=== PATIENT | female | born 1965 | race Hispanic/Latino ===

== ENCOUNTER 2017-05-21 11:37 | Observation (INO) | payer OTHER, SELFPAY ==
[2017-05-21 13:01] LABS: Bilirubin Negative (Negative); Blood, Urine Trace (Negative); Clarity CLEAR (Clear); Glucose, Urine (Dipstick) Negative (Negative); Leukocyte Negative (Negative); Nitrite Negative (Negative); Protein, Urine (Dipstick) Negative (Neg-Trace); Specific Gravity, Urine 1.018 (1.002-1.036); pH, Urine 7.5 (5.0-9.0)
[2017-05-21 13:04] LABS: Bacteria/HPF Rare-Few HPF (None Seen); Hyaline Casts/LPF 0-3 HYALINE CAST LPF (0-3 Hyaline); WBC/HPF 0-3 HPF (0-3)
[2017-05-21] MEDS ORDERED: Ondansetron HCl/PF 4 MG/2 ML Vial ONE (13:08)
[2017-05-21 13:34] LABS: #Basophils 0.1 thou/uL (0.0-0.2); #Eosinphils 0.1 thou/uL (0.0-0.7); #Lymphocytes 2.6 thou/uL (1.20-3.40); #Monocytes 0.6 thou/uL (0.11-0.59); #Neutrophils 4.3 thou/uL (1.40-6.50); %Basophils 0.7 % (0.0-1.0); %Eosinophils 0.8 % (0.0-10.0); %Monocytes 7.6 % (0.0-10.0); %Neutrophils 56.9 % (42.0-75.0); Hemoglobin 14.8 g/dL (12.0-16.0); Mean Corpuscular Hemoglobin 26.3 pg (27.0-31.0); Mean Corpuscular Volume 79.5 fl (81.0-99.0); Mean Platelet Volume 7.3 fL (7.4-10.4); Platelet Count 304 thou/uL (130-400); RBC Distribution Width 11.7 % (11.5-14.5); Red Blood Cell (RBC) Count 5.63 mill/uL (4.20-5.40); White Blood Cell (WBC) Count 7.6 thou/uL (4.8-10.8)
[2017-05-21] MEDS ORDERED: Pantoprazole 40 MG VIAL ONE (13:42)
[2017-05-21 13:48] LABS: BHCG - Serum Negative (NEGATIVE); Pregs Control Background? CLEAR/WHITE (CLR/WHITE); Pregs Control Bar Appear? YES (CONTROL BAR)
[2017-05-21 13:57] LABS: CKMB 0.7 ng/mL (0-6.6); Troponin I 0.015 ng/mL (< 0.028)
[2017-05-21 14:05] LABS: ALT (SGPT) 46 U/L (8-55); AST (SGOT) 24 U/L (5-34); Albumin 4.4 g/dL (3.5-5.0); Alkaline Phosphatase 84 U/L (40-150); Anion Gap 12 mmol/L (10-20); BUN (Urea Nitrogen) 11 mg/dL (7.0-18.7); Bilirubin, Total 1.3 mg/dL (0.2-1.2); CK (CPK) 74 U/L (29-168); Calc. Creatinine Clearance 0 mL/min (70-130); Calcium 9.5 mg/dL (7.8-10.44); Carbon Dioxide 25 mmol/L (22-29); Chloride 105 mmol/L (98-107); Estimated GFR-MDRD 89; Globulin 3.4 g/dL (2.4-3.5); Glucose 96 mg/dL (70-105); Lipase 26 U/L (8-78); Potassium 3.8 mmol/L (3.5-5.1); Protein, Total 7.8 g/dL (6.0-8.3); Sodium 138 mmol/L (136-145)
[2017-05-21] MEDS ORDERED: Piperacillin/Tazobactam 3.375 GM in Sodium Chloride 0.9% 100 ML IVPB SCH ×2 (14:45→22:00)
--- NOTE | 2017-05-21 14:47 | ULT ---
ULTRASOUND ABDOMEN LIMITED: (RIGHT UPPER QUADRANT) HISTORY: 51-year-old female with right upper quadrant abdominal pain. FINDINGS: Gallbladder: At least one moderate sized to large 30 x 20 mm gallstone. Normal gallbladder wall thick ness of 1 mm. No pericholecystic edema or free fluid. Common duct: 6 mm Liver: Diffusely increased echogenicity consistent with fatty liver. Pancreas: Body and tail obscured by shadowing from bowel gas. Nonspecific sonographic appearance of t he head. Right kidney: No hydronephrosis. IMPRESSION: 1. Positive for cholelithiasis, without sonographic evidence of acute cholecystitis. 2. Hepatosteatosis. ANTOINE Gallagher POS: MARYCHUY
--- NOTE | 2017-05-21 18:59 | HP ---
DATE OF ADMISSION: 05/21/2017 REQUESTING PHYSICIAN: Dr. Magdy Lim. ADMITTING PHYSICIAN: Dr. Sukhdeep Reed. HISTORY OF PRESENT ILLNESS: The patient is a 51-year-old female, who has had 4 day history of abdominal pain. She previously sought treatment in Urgent Care ER over the weekend. She was given a PPI and a Tylenol #3 for pain. She had no further lab work or diagnostic imaging at the urgent care facility. She reports pain has continued and is continuous with periods of increasing intensity after meals. Pain is described as sharp pain in the epigastrium and right upper quadrant area. Pain is alleviated by nothing. Pain is worsened by food intake. She was evaluated in ER at [facility] today with abdominal ultrasound showing acute cholecystitis with cholelithiasis. Trauma Surgery has been consulted for admission and management. PAST MEDICAL HISTORY: The patient has history of left kidney tumor. PAST SURGICAL HISTORY: Left partial nephrectomy 4 years ago. Kidney tumor was benign, x2. SOCIAL HISTORY: The patient lives at home with . She denies tobacco, alcohol, or drug use. CURRENT MEDICATIONS: 1. Gabapentin 100 mg daily. 2. Acetaminophen with codeine 300/30 mg every 8 hours as needed. 3. Pantoprazole 40 mg daily. ALLERGIES: No known drug allergies. LABORATORY STUDIES: Hematology: WBC 7.6, RBC 5.6, hemoglobin 14.8, hematocrit 44.7, platelets 304. Chemistry: Sodium 138, potassium 3.8, chloride 105, carbon dioxide 25, BUN 11, creatinine 0.70, total bilirubin 1.3, AST 24, ALT 46 , alkaline phosphatase 84, creatinine kinase 74, CK-MB 0.7, troponin 0.015. Lipase 26. REVIEW OF SYSTEMS: CONSTITUTIONAL: Patient denies fever, chills, generalized weakness and malaise. HEENT: Denies complaint. CARDIOVASCULAR: Denies chest pain or palpitations. RESPIRATORY: Denies shortness of breath, wheezing, or coughing. GASTROINTESTINAL: She has abdominal pain in the upper abdomen. No constipation or diarrhea. Complains of nausea, no vomiting. GENITOURINARY: No dysuria. MUSCULOSKELETAL: She reports back pain for 2 weeks, upper back between scapula , has been taking gabapentin. SKIN: No rash, no injuries. NEUROLOGIC: No dizziness, no focal weakness, no sensory changes. ALLERGIES: No itching, no hives. PSYCHIATRIC: No anxiety, no depression. PHYSICAL EXAMINATION: VITAL SIGNS: Blood pressure 143/81, pulse 70, respirations 18, temperature 98.2 , O2 sat 99% room air. Pain 7/10. CONSTITUTIONAL: Well-developed, well-nourished female lying in bed, no acute distress, nontoxic appearing. HEENT: Atraumatic, normocephalic. Trachea midline. NECK: No neck pain. RESPIRATORY: Bilateral breath sounds clear. No respiratory distress. CARDIOVASCULAR: Regular rate and rhythm. Heart sounds normal. BACK: No tenderness to palpation, normal in appearance. EXTREMITIES: No cyanosis. Cap refill brisk, 2+ pulses in all extremities. Normal range of motion. NEUROLOGIC: GCS 15, alert and oriented x3. SKIN: Warm and dry, appropriate color. No injuries noted. ABDOMEN: Tenderness in right upper quadrant. Bowel sounds normal, no masses, no guarding, no rigidity. ASSESSMENT AND PLAN: 1. Abdominal pain. 2. Acute cholecystitis with cholelithiasis. PLAN: 1. Admit to surgical floor. 2. May have clear liquid diet, n.p.o. after midnight, begin IV fluids at midnight. 3. IV Toradol and scheduled Tylenol for pain control. 4. IV antibiotics, Zosyn. 5. Recommend laparoscopic cholecystectomy. This has been discussed at length with the patient and her . They are in agreement with recommendations. We will plan for OR for laparoscopic cholecystectomy tomorrow. The patient has been seen and examined with Dr. Reed, attending surgeon, who agrees with the assessment and plan. SANDRA
[2017-05-21] MEDS ORDERED: Ondansetron HCl/PF 4 MG/2 ML Vial IVP PRN ×2 (19:21→19:28)
[2017-05-21] MEDS ORDERED: Ondansetron ODT 4 MG TAB SL PRN (19:21)
[2017-05-21] MEDS ORDERED: Morphine 5 MG/ML SYRINGE SLOW IVP PRN (19:21)
[2017-05-21] MEDS ORDERED: Dextrose 50% Abboject 50 ML SYRINGE SLOW IVP PRN (19:28)
[2017-05-21] MEDS ORDERED: Acetaminophen 500 MG TAB PO PRN (19:28)
[2017-05-21] MEDS ORDERED: Dextrose 5% in Water 1,000 ML IV PRN (19:28)
[2017-05-21] MEDS ORDERED: Ketorolac Tromethamine 30 MG/ML VIAL IVP PRN (19:28)
[2017-05-21] MEDS ORDERED: D5 1/2 NS w/20 mEq KCL 1,000 ML IV SCH (19:30)
[2017-05-21 20:39] VITALS: BMI 33.3
[2017-05-21] MEDS: Piperacillin/Tazobactam 3.375 GM in Sodium Chloride 0.9% 100 ML IVPB SCH (22:16)
[2017-05-21] MEDS: D5 1/2 NS w/20 mEq KCL 1,000 ML IV SCH (23:32)
[2017-05-22] MEDS: Piperacillin/Tazobactam 3.375 GM in Sodium Chloride 0.9% 100 ML IVPB SCH ×2 (03:10→09:44)
[2017-05-22 04:43] LABS: #Basophils 0.1 thou/uL (0.0-0.2); #Eosinphils 0.1 thou/uL (0.0-0.7); #Lymphocytes 2.5 thou/uL (1.20-3.40); #Monocytes 0.5 thou/uL (0.11-0.59); #Neutrophils 3.1 thou/uL (1.40-6.50); %Eosinophils 1.8 % (0.0-10.0); %Lymphocytes 39.8 % (21.0-51.0); %Monocytes 7.9 % (0.0-10.0); %Neutrophils 49.5 % (42.0-75.0); Hemoglobin 13.3 g/dL (12.0-16.0); Mean Corpuscular HGB CONC 33.3 g/dL (32.0-36.0); Mean Corpuscular Hemoglobin 26.6 pg (27.0-31.0); Mean Corpuscular Volume 79.7 fl (81.0-99.0); Mean Platelet Volume 7.6 fL (7.4-10.4); Platelet Count 270 thou/uL (130-400); RBC Distribution Width 11.7 % (11.5-14.5); White Blood Cell (WBC) Count 6.3 thou/uL (4.8-10.8)
[2017-05-22 04:51] LABS: Anion Gap 9 mmol/L (10-20); BUN (Urea Nitrogen) 10 mg/dL (7.0-18.7); Calc. Creatinine Clearance 118 mL/min (70-130); Calcium 8.9 mg/dL (7.8-10.44); Carbon Dioxide 28 mmol/L (22-29); Chloride 106 mmol/L (98-107); Estimated GFR-MDRD 82; Glucose 124 mg/dL (70-105); Potassium 3.8 mmol/L (3.5-5.1); Sodium 139 mmol/L (136-145)
[2017-05-22 07:08] LABS: ALT (SGPT) 43 U/L (8-55); AST (SGOT) 26 U/L (5-34); Albumin 3.8 g/dL (3.5-5.0); Alkaline Phosphatase 66 U/L (40-150); Bilirubin, Direct 0.5 mg/dL (0.1-0.3); Bilirubin, Total 1.6 mg/dL (0.2-1.2); Protein, Total 6.5 g/dL (6.0-8.3)
[2017-05-22] MEDS: D5 1/2 NS w/20 mEq KCL 1,000 ML IV SCH (08:23)
[2017-05-22] MEDS ORDERED: Bupivacaine 0.25% HCL 30 ML VIAL ONE (11:25)
[2017-05-22] MEDS ORDERED: Lidocaine 1% w/Epinephrine 1:200K 30 ML VIAL ONE (11:25)
[2017-05-22] MEDS ORDERED: Midazolam HCl 2 mg/2 ml Vial ONE (11:39)
[2017-05-22] MEDS ORDERED: Fentanyl 100 MCG/2 ML VIAL ONE ×2 (11:39→14:38)
[2017-05-22] MEDS ORDERED: Ibuprofen 800 MG TAB PO PRN (14:31)
[2017-05-22] MEDS ORDERED: Acetaminophen 500 MG TAB PO SCH (14:32)
--- NOTE | 2017-05-22 15:42 | OP ---
DATE OF OPERATION: 05/22/2017 PREOPERATIVE DIAGNOSIS: Acute cholecystitis with cholelithiasis. POSTOPERATIVE DIAGNOSIS: Acute on chronic cholecystitis with cholelithiasis. OPERATION PERFORMED: Laparoscopic cholecystectomy. SURGEON: Sukhdeep Reed D.O. ANESTHESIA: General endotracheal. ESTIMATED BLOOD LOSS: 100 mL. FLUIDS GIVEN: 1500 mL crystalloids. SPONGE AND INSTRUMENT COUNT: Certified as correct x2. COMPLICATIONS: None apparent at time of operation. INDICATIONS FOR OPERATION: A 51-year-old woman presented with postprandial abdominal pain. Clinical and radiographic examination was consistent with acute cholecystitis with cholelithiasis fo r which patient was brought to the operating room for cholecystectomy. Findings are consistent with dilated gallbladder in the usual anatomic location completely encased by omental adhesions. DESCRIPTION OF PROCEDURE: Informed consent was obtained from the patient who was brought to the oper ating room and placed in supine position. Following general anesthesia, the abdomen is sterilely pre pped and draped in the usual fashion. The skin below the umbilicus was infiltrated with 0.25% Marcai ne with epinephrine. A small curvilinear infraumbilical incision is made using an 11 scalpel. An um bilical stalk was grasped with Mj's and elevated. Veress needle was inserted through the incisio n and placed in the peritoneal cavity through which the abdomen was insufflated with 3.5 liters of CO 2 gas. Intraabdominal pressure was noted at 1 mmHg. Following abdominal insufflation, Veress needle was removed and a 5 mm trocar was introduced using a Visiport under laparoscopy. Laparoscopy confir med proper placement of the port, no injuries to underlying structures. Additional laparoscopy revea ls gallbladder in the usual anatomic location completely encased by omental adhesions. Under direct laparoscopy, a 12 mm epigastric and two 5 mm right lateral subcostal ports were placed after the over lying skin was infiltrated with 0.25% Marcaine with epinephrine and appropriate incisions made. The patient is placed in the reverse Trendelenburg position, rotated to her left. Then used a [place] d issector with cautery to take down omental adhesions to reveal the fundus of the gallbladder. I intr oduced a Prestige grasper through the right lateral subcostal port and attempted to grasp the fundus of the gallbladder which was markedly distended and tense. Decision was made therefore to decompress the gallbladder prior to continuing the procedure. I used Endo suction catheter with cautery perfor nathaniel a cholecystotomy. The fundus of the gallbladder evacuated excess white bile. The Prestige gras per was then used to grasp the fundus of the gallbladder which was elevated cephalad. Omental adhesi ons were taken down from the remainder of the gallbladder meticulously but tediously using a [place] dissector achieving hemostasis with cautery. A second Prestige grasper was applied at the Derik' s pouch which was retracted laterally. Cystic duct was dissected free from surrounding structures at the triangle of Calot and divided between clips. Two clips were applied proximally and one clip at the junction of the cystic duct and gallbladder. Cystic artery was dissected free from surrounding s tructures and divided between clips in a similar fashion. The markedly thick walled and inflamed gal lbladder was tediously taken down from the liver bed using cautery. The gallbladder was delivered ou t of the abdominal cavity using an EndoCatch. Gallbladder fossa was inspected. A fair amount of ooz ing was present. I attempted to achieve hemostasis with cautery with minimum success. We then appli ed some arrest at the surface of the gallbladder fossa achieving hemostasis. The remainder of the op erative site has inspected. No other active bleeding was present. Finding no other pathology, lapar oscopy was terminated. Fascia of the epigastric site was closed using 0 Vicryl suture and Endo closu re device. The abdominal cavity, having been irrigated and excess irrigant fluid evacuated. The abd omen was desufflated. All ports and instruments removed and accounted for. Skin incisions were clos ed using 4-0 Monocryl suture in subcuticular fashion. Dermabond was applied over the incision. The patient tolerated this operation without any apparent complication and has returned to recovery room in satisfactory condition.
[2017-05-22 15:51] VITALS: BP 126/84; TEMP 97.5
[2017-05-22] MEDS ORDERED: Metoclopramide HCl 10 MG/2 ML VIAL ONE (16:22)
[2017-05-22] MEDS ORDERED: PROPOFOL 200 MG/20 ML VIAL ONE (16:22)
[2017-05-22] MEDS ORDERED: Glycopyrrolate 0.2 MG/ML 5 ML SYRINGE ONE (16:22)
[2017-05-22] MEDS ORDERED: Dexamethasone 20 MG/5 ML VIAL ONE (16:22)
[2017-05-22] MEDS ORDERED: Lidocaine 1% PF 5 ML VIAL ONE (16:22)
[2017-05-22] MEDS ORDERED: Ondansetron HCl/PF 4 MG/2 ML Vial ONE (16:22)
[2017-05-22] MEDS ORDERED: Ketorolac Tromethamine 30 MG/ML VIAL ONE (16:22)
[2017-05-22] MEDS ORDERED: diphenhydrAMINE 50 MG/ML VIAL ONE (16:22)
--- NOTE | 2017-05-22 23:26 | DIS ---
DATE OF ADMISSION: 05/21/2017 DATE OF DISCHARGE: 05/22/2017 ADMITTING PHYSICIAN: Sukhdeep Reed DO ADMITTING DIAGNOSIS: Acute cholecystitis with cholelithiasis. DISCHARGE DIAGNOSIS: Acute cholecystitis with cholelithiasis. OPERATIONS PERFORMED: Laparoscopic cholecystectomy today. HISTORY AND HOSPITAL COURSE: A 51-year-old woman presented yesterday with recurrent postprandial epi gastric to right upper quadrant abdominal pain. Clinical and radiographic examination was consistent with acute cholecystitis with cholelithiasis for which patient underwent an uneventful laparoscopic cholecystectomy today. Following surgery, patient is returned to the general surgical floor where she has remained at time o f this discharge. She is ambulating with minimal difficulty. Pain is adequately controlled on oral analgesics. The patient is tolerating clear liquid diet and is in the process of taking general diet for dinner. She has remained hemodynamically stable and afebrile through this hospitalization. DISCHARGE INSTRUCTIONS: The patient will be discharged home today with the following instructions: 1. She sees me in the Surgery Clinic in 2 weeks. 2. She may shower effective tomorrow and avoid weightlifting in excess of 20 pounds until she has be en released by me. 3. She may resume all her prehospital medications as prescribed by her primary care physician. 4. Additionally, she is given a prescription for tramadol 50 mg #30 to be taken 1-2 p.o. q.6 hours p .r.n. pain. She may also alternate this with acetaminophen 1000 mg p.o. q.6 hours and/or ibuprofen 8 00 mg p.o. q.8 hours p.r.n. pain. The patient is to call me with any questions or problems including exacerbation of abdominal pain, in tolerance to oral intake or fever in excess of 101 degrees Fahrenheit. She is instructed to ambulate daily to avoid complications of venous thromboembolism. These instructions were given to the patient in the presence of her nurse and her adult son at [facility]. The patient has indicated understanding of information given. I have answered her questions. She mo s expressed deep gratitude for the care rendered to her during this hospitalization and surgery.
[2017-05-23] MEDS ORDERED: Gabapentin 100 MG CAP PO SCH (09:00)
--- NOTE | 2017-05-25 17:46 | EKG ---
Test Reason : ABD PAIN Blood Pressure : / mmHG Vent. Rate : 070 BPM Atrial Rate : 070 BPM P-R Int : 130 ms QRS Dur : 084 ms QT Int : 400 ms P-R-T Axes : -01 036 051 degrees QTc Int : 432 ms Normal sinus rhythm Nonspecific T wave abnormality Abnormal ECG Confirmed by SINA WRIGHT, MARIA LUIAS ([id number]), manuscript editor DEANDRA MATTHEWS ([id number]) on 05/25/2017 5:46:12 PM Referred By: Confirmed By:MARIA LUISA ANDINO MD
== END 2017-05-22 19:40 | disposition home or self-care (01) ==
LOC: ERS 11:37 → INTOOBSV 14:29 → SURG A 14:29
PROVIDERS: ADMIT Surgery; ATTEND Surgery
PROC: 0FT44ZZ Resection of Gallbladder, Percutaneous Endoscopic Approach (ICD-10-PCS; principal; 2017-05-22)
DX: K80.10 Calculus of gallbladder with chronic cholecystitis without obstruction (principal); Z79.899 Other long term (current) drug therapy; Z98.891 History of uterine scar from previous surgery; Z98.890 Other specified postprocedural states
CPT/HCPCS: 36415; 76705; 80048; 80053; 80076; 81003; 81015; 82553; 83690; 84484; 84703; 85025; 88304; 93005; 96361; 96365; 96366; 96375; C9113; G0378; J0131; J1100; J1200; J1885; J2001; J2250; J2270; J2405; J2543; J2704; J2765; J3010; J7050; S0020